=== PATIENT | female | born 1960 | race Caucasian/White ===

== ENCOUNTER → 2019-05-16 | Outpatient (CLI) | payer OTHER | LOC: MC.RAD 10:50 | DX: Z12.31 Encounter for screening mammogram for malignant neoplasm of breast (principal) ==

== ENCOUNTER → 2019-09-21 | Outpatient (CLI) | payer MEDICAID | LOC: COL.RAD 12:34 | DX: Z01.818 Encounter for other preprocedural examination (principal); R53.82 Chronic fatigue, unspecified; Z87.891 Personal history of nicotine dependence ==

== ENCOUNTER → 2019-09-21 | Outpatient (CLI) | payer MEDICAID ==
[2019-09-21 16:30] LABS: HEMATOCRIT 42.1 % (37.0-47.0); HEMOGLOBIN 13.8 g/dl (12.5-16.0); MEAN CELL VOLUME 93 fl (80.0-100.0); MEAN CORPUSCULAR HEMOGLOBIN 30 pg (27.0-31.0); MEAN CORPUSCULAR HGB CONC 33 g/dl (33.0-37.0); MEAN PLATELET VOLUME 10.3 fl (7.4-10.4); PLATELET COUNT 265 K/mm3 (130-400); RED BLOOD COUNT 4.54 M/mm3 (4.10-5.30); REDCELL DISTRIBUTION WIDTH-CV 13.1 % (11.5-14.5)
[2019-09-21 16:45] LABS: PH 7 (5-8); SQUAMOUS EPITHELIAL 0-2 /hpf; URINE APPEARANCE Clear; URINE BACTERIA None Seen /hpf; URINE BILIRUBIN Negative (NEGATIVE); URINE BLOOD 1+ (NEGATIVE); URINE COLOR Yellow; URINE GLUCOSE Negative (NEGATIVE); URINE KETONE Negative (NEGATIVE); URINE LEUKOCYTE ESTERASE Negative (NEGATIVE); URINE NITRATE Negative (NEGATIVE); URINE PROTEIN(semi-quant) Negative (NEGATIVE); URINE RBC 0-2 /hpf; URINE UROBILINOGEN Negative (NEGATIVE); URINE WBC 0-2 /hpf
[2019-09-21 21:26] LABS: COLLECTION METHOD CLEAN CATCH
== END ==
LOC: COL.LAB 15:56
PROVIDERS: Obstetrics & Gynecology
DX: F31.9 Bipolar disorder, unspecified (principal)

== ENCOUNTER 2020-04-03 07:44 | Emergency (ER) | payer MEDICAID ==
[~2020-04-03] VITALS: Ht 165.1 cm; Wt 82.7 kg
[~2020-04-03 07:44] MED LIST: ABILIFY5 MG PO; ARTANE 2MG2 MG PO; BUSPAR10 MG PO; CALCIUM 600-D 61 TAB PO; CELEXA40 MG PO; CLARITIN 1010 MG/TAB PO; DESYREL 100MG100 MG PO; INDERAL 20MG20 MG PO; LAMICTAL 100MG100 MG PO; MASON NATURAL1200 MG PO; PRAVACHOL 40MG40 MG PO; SYNTHROID0.2 MG/TAB PO; ZYPREXA 5MG5 MG PO
[2020-04-03 07:45] VITALS: TEMP 98.8
[2020-04-03] MEDS ORDERED: LITHIUM 30300 MG/CAP PO (08:11)
[2020-04-03 08:35] LABS: BASO % 0.7 % (0.0-2.0); EOS # 0.2 (0.0-0.7); EOS % 2.8 % (0-4.0); GRAN # 3.6 (1.4-6.5); GRAN % 67.1 % (42.2-75.2); HEMATOCRIT 41.9 % (37.0-47.0); HEMOGLOBIN 13.3 g/dl (12.5-16.0); LYMPH # 1.1 (1.2-3.4); LYMPH % 20.4 % (20.0-51.0); MEAN CELL VOLUME 93 fl (80.0-100.0); MEAN CORPUSCULAR HEMOGLOBIN 30 pg (27.0-31.0); MEAN CORPUSCULAR HGB CONC 32 g/dl (33.0-37.0); MEAN PLATELET VOLUME 10.3 fl (7.4-10.4); MONO # 0.4 (0.1-0.6); MONO % 7.9 % (1.7-9.3); PLATELET COUNT 198 K/mm3 (130-400); REDCELL DISTRIBUTION WIDTH-CV 14.2 % (11.5-14.5)
[2020-04-03 10:35] LABS: ALBUMIN 4.6 gm/dL (3.5-5.0); BILIRUBIN,TOTAL 0.5 mg/dL (0.0-1.0); CALCIUM 10.6 mg/dL (8.4-10.2); CREATININE, serum 0.73 (0.52-1.25); POTASSIUM 4.4 mmol/L (3.4-5.0); TOTAL PROTEIN 7.9 gm/dL (6.4-8.2)
[2020-04-03 11:30] VITALS: BP 142/79; PULSE 64
== END 2020-04-03 11:30 | disposition home or self-care (01) ==
LOC: COL.ER 07:44
PROVIDERS: Emergency Medicine
DX: S09.90XA Unspecified injury of head, initial encounter (principal); S16.1XXA Strain of muscle, fascia and tendon at neck level, initial encounter; R26.89 Other abnormalities of gait and mobility; G20 Parkinson's disease; F31.9 Bipolar disorder, unspecified; W18.09XA Striking against other object with subsequent fall, initial encounter; Y92.091 Bathroom in other non-institutional residence as the place of occurrence of the external cause
CPT/HCPCS: J1885; J7040

== ENCOUNTER 2020-04-11 15:23 | Observation (INO) | payer MEDICAID ==
[~2020-04-11] VITALS: Ht 162.6 cm; Wt 84.1 kg
[~2020-04-11 15:23] MED LIST changes: +LITHIUM 30300 MG/CAP PO
[2020-04-11 16:21] LABS: BASO # 0.1 (0.0-0.2); BASO % 0.8 % (0.0-2.0); EOS # 0.2 (0.0-0.7); EOS % 3.5 % (0-4.0); GRAN # 3.6 (1.4-6.5); GRAN % 56.4 % (42.2-75.2); HEMATOCRIT 43.9 % (37.0-47.0); HEMOGLOBIN 14.2 g/dl (12.5-16.0); LYMPH # 1.9 (1.2-3.4); LYMPH % 29.3 % (20.0-51.0); MEAN CELL VOLUME 92 fl (80.0-100.0); MEAN CORPUSCULAR HEMOGLOBIN 30 pg (27.0-31.0); MEAN CORPUSCULAR HGB CONC 32 g/dl (33.0-37.0); MEAN PLATELET VOLUME 10.2 fl (7.4-10.4); MONO # 0.6 (0.1-0.6); MONO % 9.5 % (1.7-9.3); PLATELET COUNT 236 K/mm3 (130-400); RED BLOOD COUNT 4.76 M/mm3 (4.10-5.30)
[2020-04-11 16:54] LABS: ALANINE AMINOTRANSFERASE 23 U/L (4-34); ALBUMIN 4.7 gm/dL (3.5-5.0); ALKALINE PHOSPHATASE 112 U/L (50-136); ANION GAP 7 mmol/L (7-16); AST,SGOT 23 U/L (15-37); BILIRUBIN,TOTAL 0.5 mg/dL (0.0-1.0); BLOOD UREA NITROGEN 11 mg/dL (7-17); CALCIUM 10.4 mg/dL (8.4-10.2); CARBON DIOXIDE 28 mmol/L (22-30); CHLORIDE 104 mmol/L (98-107); GLUCOSE 91 mg/dL (74-106); POTASSIUM 4.1 mmol/L (3.4-5.0); SODIUM 140 mmol/L (137-145); TOTAL PROTEIN 7.7 gm/dL (6.4-8.2)
[2020-04-11 17:05] LABS: COLLECTION METHOD CLEAN CATCH
[2020-04-11 17:10] LABS: TROPONIN-I < 0.012 ng/mL (0.000-0.035)
[2020-04-11 17:11] LABS: C-REACTIVE PROTEIN < 0.5 mg/dL (0.0-0.9)
[2020-04-11 17:15] LABS: PH 7 (5-8); SQUAMOUS EPITHELIAL None Seen /hpf; URINE APPEARANCE Clear; URINE BACTERIA Rare /hpf; URINE BILIRUBIN Negative (NEGATIVE); URINE BLOOD Negative (NEGATIVE); URINE COLOR Straw; URINE GLUCOSE Negative (NEGATIVE); URINE KETONE Negative (NEGATIVE); URINE LEUKOCYTE ESTERASE Negative (NEGATIVE); URINE NITRATE Negative (NEGATIVE); URINE PROTEIN(semi-quant) Negative (NEGATIVE); URINE RBC 0-2 /hpf; URINE UROBILINOGEN Negative (NEGATIVE)
[2020-04-11 19:25] VITALS: BP 134/62; PULSE 61; TEMP 97.9
--- NOTE | 2020-04-11 23:36 | NUR ---
Pt admission procedure completed and charted, alert, oriented, roomair. Heart and lung sound clear, no edema, no wound over body. No N/V/D, tingling, numbness, SOA as per pt. Pt stated her pain level has gone down after getting pain meds at ER. Helped her settled on bed, call light on reach, no further needs at this time.
[2020-04-12] VITALS (7 sets, daily range): BP systolic 122–142; BP diastolic 53–67; PULSE 47–71; TEMP 97.4–98.8
--- NOTE | 2020-04-12 07:35 | NUR ---
Pt slept through out the night. Morning meds provided as per OCT, tolerated well. Handover provided to the day nurse.
--- NOTE | 2020-04-12 07:45 | NUR ---
Patient sitting up in bed watching TV. A&O,but intermittently confused and impulsive. VSS. IV CDI. Denies pain and discomfort. Fall precautions in place. No further needs expressed from the patient. Call light within reach. Bed alarm on
--- NOTE | 2020-04-12 13:01 | NUR ---
Plan: To return home with Home health through [facility] and with mother and daughter support. Assessment: SW met with patient about plan. Patient reports that her mother is her caregiver who is 88 years old Shiloh Jerome . Patient reports that she her DTR Josie Garcia . Patient reports that she has trouble with failing 1-2 times a day. Patient reports that she is interested in home health supports. Derekn reports that she thinks she needs a wheelchair due to her unsteady gait. PT worked with client. Wheelchair is not recommended. SW educated patient on PT findings. Patient reports that her PCP is Dr. Kandi GARCIA and [facility] Patient uses a walker 28/02 to assist in mobility. SW spoke with patients mother about her care. Mother shares that she is unable to continue to take care of her and wants to adovate that she wants to be home but needs support. SW educated patients' mother on setting up home healthcare. SW educated on independent or assisted living facilities. Patients is concerned on how the client will get home, mother is unable to drive. DTR is a teacher and can not support during the day. Educated on a taxi Voucher. Mother reports the patient is scheduled for and MRI on Tuesday and wanted it done before she leaves. Educated on the services being separate, with Dr. Oswald. Action: SW will send fax to [facility] for home health care. Educated patient on support for PT. Will continue support DC plan.
--- NOTE | 2020-04-12 18:08 | NUR ---
Patient has been impulsive throughout the shift, getting up and on the edge of bed before calling for assistance to the bathroom. Nursing staff has been instructing patient to use the call button for assistance. Patient has had one loose BM and several smaller BM's. Patient is A&O, but forgetful at times. VSS. IV CDI. Fall precautions in place. Call light within reach. Bed alarm on
--- NOTE | 2020-04-12 22:45 | NUR ---
Pt assessment completed and charted, alert, oriented, roomair. Meds provided as per OCT, tolerated well. Helped her settled on bed, call light on reach. No further needs at this time.
[2020-04-13 04:34] VITALS: BP 152/72; PULSE 61; TEMP 97.9
[2020-04-13 07:26] LABS: BASO % 0.6 % (0.0-2.0); EOS # 0.3 (0.0-0.7); GRAN % 57.7 % (42.2-75.2); HEMATOCRIT 40.3 % (37.0-47.0); HEMOGLOBIN 12.9 g/dl (12.5-16.0); LYMPH # 1.5 (1.2-3.4); LYMPH % 28.5 % (20.0-51.0); MEAN CELL VOLUME 94 fl (80.0-100.0); MEAN CORPUSCULAR HEMOGLOBIN 30 pg (27.0-31.0); MEAN CORPUSCULAR HGB CONC 32 g/dl (33.0-37.0); MONO # 0.4 (0.1-0.6); MONO % 7.8 % (1.7-9.3); PLATELET COUNT 245 K/mm3 (130-400); RED BLOOD COUNT 4.28 M/mm3 (4.10-5.30); REDCELL DISTRIBUTION WIDTH-CV 14.3 % (11.5-14.5)
[2020-04-13 07:31] VITALS: BP 130/65; PULSE 52; TEMP 98
[2020-04-13 07:39] LABS: CREATININE, serum 0.78 (0.52-1.25); POTASSIUM 4.2 mmol/L (3.4-5.0)
--- NOTE | 2020-04-13 07:43 | NUR ---
Pt had an uneventful night, slept through out the night. Morning meds provided as per OCT, tolerated well. Handover provided to the day nurse.
--- NOTE | 2020-04-13 08:15 | NUR ---
Patient sitting up in bed watching TV. A&Ox3. VSS. IV CDI. Denies pain and disocomfort. No further needs expressed from the patient. Call light within reach. Bed alarm on
--- NOTE | 2020-04-13 10:18 | NUR ---
Pt was in bed comfortable. Lungs sounded diminished on the left side. IV site was CDI. Pt denied any pain. Call light within reach.
[2020-04-13 11:45] VITALS: BP 139/69; PULSE 65; TEMP 98.5
[2020-04-13 15:12] VITALS: BP 141/61; PULSE 66; TEMP 98.5
--- NOTE | 2020-04-13 15:14 | NUR ---
Hospitalist approached SW about sending patient to [facility]. No additional information was given. JOSSUE spoke with patient who indicated that she wished to go to [facility]. JOSSUE contacted [facility] and spoke with Liz who indicated that they did offer LTC. JOSSUE faxed a referral to [facility], and contacted the patients nurse to inform her that a referral had been sent.
--- NOTE | 2020-04-13 17:39 | NUR ---
Patient had an uneventful day. Was not as impulsive to get out of bed. Did call more for help with assistance with ambulation. Denies pain and discomfort. No IV access, IV was coming out. Doctor notified and okay with no IV access. Patient A&Ox3. VSS. No further needs expressed from the patient. Call light within reach. Bed alarm on
[2020-04-13 19:05] VITALS: BP 149/71; PULSE 57; TEMP 98.4
--- NOTE | 2020-04-13 22:16 | NUR ---
Pt assessment completed, charted, alert, oriented, roomair, independent. Meds provided as per OCT, along with ibuprofen for headache on pt request. Pt is settled on her bed, call light on her reach, bed alarm on, VSS. No further needs at this time.
[2020-04-14 00:06] VITALS: BP 150/60; PULSE 59; TEMP 97.9
[2020-04-14 03:19] VITALS: BP 149/53; PULSE 51; TEMP 98
--- NOTE | 2020-04-14 05:02 | NUR ---
Pt had an uneventful night, slept through out the night. Call light within reach. No further needs at this time.
[2020-04-14 08:00] VITALS: BP 156/53; PULSE 64; TEMP 97.2
--- NOTE | 2020-04-14 08:06 | NUR ---
Assessment completed, alert/oriented, vital signs stable, denies any pain or discomfort, she stated she "slept amazing overnight", no tremors observed this morning, patient has been up with stand by assist and doing well ambulating, she is sitting up eating breakfast, morning meds given and patient denies other needs at this time, she is hoping to be discharged today
[2020-04-14] MEDS ORDERED: ARTANE 2MG2 MG PO (10:46)
[2020-04-14 11:20] VITALS: BP 120/60; PULSE 62; TEMP 98.6
--- NOTE | 2020-04-14 14:10 | NUR ---
Discharge orders discussed with the patient, instructed to follow up with PCP/PMH/Neuro as directed, discussed labs and medication chands as well as new meds, script sent to [facility] for her, she is leaving with her daughter and I escorted her out by wheelchair
--- NOTE | 2020-04-15 11:44 | NUR ---
wafer polishing lead worker contacted patient's mother, Petrona Jerome [phone] to discuss options for patient's care. Worker provided information on [facility] as only provider that accepts [facility] (for nursing only). Worker also provided information on [facility] assisted living. Petrona will reach out to assisted living facilities and see if patient is eligible with her income and care needs. Petrona and patient prefer care in the home. Worker gave a referral to [facility] for possible admission to care. [facility] only accepts nursing visits with no therapy supports.
== END 2020-04-14 14:12 | disposition home or self-care (01) ==
LOC: COL.ER 15:23 → MEDICAL 17:24
PROVIDERS: Emergency Medicine; ADMIT Internal Medicine Pulmonary Disease
DX: M75.01 Adhesive capsulitis of right shoulder (principal); R29.6 Repeated falls; E78.5 Hyperlipidemia, unspecified; E03.9 Hypothyroidism, unspecified; G20 Parkinson's disease; E83.52 Hypercalcemia; R44.0 Auditory hallucinations; Z88.0 Allergy status to penicillin; Z87.891 Personal history of nicotine dependence
CPT/HCPCS: G0378; J1650; J7030

== ENCOUNTER → 2020-04-30 | Outpatient (CLI) | payer MEDICAID | LOC: COL.RAD 04-16 10:30 | DX: G20 Parkinson's disease (principal); Z86.59 Personal history of other mental and behavioral disorders ==

== ENCOUNTER → 2020-10-14 | Outpatient (CLI) | payer MEDICAID ==
[~2020-10-14] MED LIST changes: +ALBUTEROL0.83 MG/ML IH; +ARICEPT10 MG PO; +B-121000 MCG PO; +BENTYL 10MG10 MG/CAP PO; +BIOTIN5000 MCG PO; +CALCIUM CARBON650 M2 PO; +EPA FISH OIL1 SGL PO; +INCRUSE EL62.5 MCG/A IH; +NORVASC 5MG5 MG/TAB PO; +PROAIR HFA0.09 MG/AC IH; +PROTONIX 40MG T40 MG PO; +ROBAXIN 50500 MG/TAB PO; +SINEMET 25/101 UDTAB PO; +VITAMIND3 5000 PO
== END ==
LOC: COL.RAD 11:50
DX: M47.816 Spondylosis without myelopathy or radiculopathy, lumbar region (principal); M47.818 Spondylosis without myelopathy or radiculopathy, sacral and sacrococcygeal region; M51.36 Other intervertebral disc degeneration, lumbar region; R15.9 Full incontinence of feces

== ENCOUNTER 2020-11-14 09:53 | Day surgery (SDC) | payer MEDICAID ==
[~2020-11-14] VITALS: Ht 162.6 cm; Wt 94.1 kg
[~2020-11-14 09:53] MED LIST changes: -ALBUTEROL0.83 MG/ML IH; -ARICEPT10 MG PO; -B-121000 MCG PO; -BENTYL 10MG10 MG/CAP PO; -BIOTIN5000 MCG PO; -CALCIUM CARBON650 M2 PO; -EPA FISH OIL1 SGL PO; -INCRUSE EL62.5 MCG/A IH; -NORVASC 5MG5 MG/TAB PO; -PROAIR HFA0.09 MG/AC IH; -PROTONIX 40MG T40 MG PO; -ROBAXIN 50500 MG/TAB PO; -SINEMET 25/101 UDTAB PO; -VITAMIND3 5000 PO
[2020-11-14] MEDS ORDERED: PROAIR HFA0.09 MG/AC IH (11:31)
[2020-11-14] MEDS ORDERED: INCRUSE EL62.5 MCG/A IH (11:32)
[2020-11-14] MEDS ORDERED: ROBAXIN 50500 MG/TAB PO (11:33)
[2020-11-14] MEDS ORDERED: PROTONIX 40MG T40 MG PO (11:33)
[2020-11-14] MEDS ORDERED: SINEMET 25/101 UDTAB PO (11:35)
[2020-11-14] MEDS ORDERED: B-121000 MCG PO (12:10)
[2020-11-14] MEDS ORDERED: BIOTIN5000 MCG PO (12:11)
[2020-11-14] MEDS ORDERED: VITAMIND3 5000 PO (12:11)
[2020-11-14] MEDS ORDERED: EPA FISH OIL1 SGL PO (12:11)
[2020-11-14] MEDS ORDERED: ALBUTEROL0.83 MG/ML IH (12:14)
[2020-11-14] MEDS ORDERED: CALCIUM CARBON650 M2 PO (12:15)
[2020-11-14] MEDS ORDERED: ARICEPT10 MG PO (12:16)
[2020-11-14] MEDS ORDERED: NORVASC 5MG5 MG/TAB PO (12:22)
[2020-11-14] MEDS ORDERED: BENTYL 10MG10 MG/CAP PO (12:24)
[2020-11-14 12:33] VITALS: BP 133/76; PULSE 60; TEMP 96.8
[2020-11-14 13:10] VITALS: BP 106/67; PULSE 54; TEMP 96.9
--- NOTE | 2020-11-14 13:10 | NUR ---
PT RETURNS TO ENDO SUITE BAY [address] VIA CART ACCOMPANIED BY Jocelyne RAY RN. PT ALERT AND ORIENTED. IVF INFUSING TO IV IN RH STARTED BY CAR DELIVERER DURING PROCEDURE. PT DENIES PAIN OR NAUSEA. VITALS STABLE. WARM BLANKETS PROVIDED. PT DENIES NEEDS OR COMPLAINTS. COFFEE AND TOAST PROVIDED. PT RESTING IN CART, CALL LIGHT IN REACH.
[2020-11-14 13:30] VITALS: BP 144/77; PULSE 65
--- NOTE | 2020-11-14 13:30 | NUR ---
PT ATE TOAST AND DRANK COFFEE WITH NO DIFFICULTY. DR. VAILA IN TO DISCUSS PROCEDURES WITH PT AND MOTHER ON TELEPHONE. PT DENIES NEEDS AT THIS TIME. CALL LIGHT IN REACH.
[2020-11-14 13:45] VITALS: BP 132/85; PULSE 58
--- NOTE | 2020-11-14 13:45 | NUR ---
PT RESTING IN CHAIR. VITALS WNL. IV DISCONTINUED. PT CHANGED TO PERSONAL CLOTHING. DISCHARGE INSTRUCTIONS PROVIDED. PT VERBALIZES UNDERSTANDING AND DENIES FURTHER QUESTIONS OR COMPLAINTS. CALL PLACED TO [facility]. STAFF STATES [facility] WILL BE AT THE HOSPITAL SHORTLY.
--- NOTE | 2020-11-14 14:05 | NUR ---
PT DISCHARGED VIA WHEEL CHAIR TO WAITING ROOM IN DOWNSTAIRS PT ENTRANCE LOBBY. PT WAITING FOR TRANSPORTATION [facility] TO ARRIVE. PT BELONGINGS, WALKER, AND DISCHARGE PACKET SENT WITH PT. PT DENIES FURTHER NEEDS AT THIS TIME. PT WILL HAVE ACCOUNT PLANNER CALL [facility] IF [facility] DOES NOT ARRIVE SOON.
== END 2020-11-14 14:05 | disposition home or self-care (01) ==
LOC: SDCO 09:53
DX: Z12.11 Encounter for screening for malignant neoplasm of colon (principal); K63.5 Polyp of colon; K21.9 Gastro-esophageal reflux disease without esophagitis; K29.70 Gastritis, unspecified, without bleeding; K44.9 Diaphragmatic hernia without obstruction or gangrene; K31.84 Gastroparesis; G20 Parkinson's disease; I10 Essential (primary) hypertension; J44.9 Chronic obstructive pulmonary disease, unspecified; Z90.710 Acquired absence of both cervix and uterus
CPT/HCPCS: J2704; J7120

== ENCOUNTER → 2021-01-14 | Outpatient (CLI) | payer MEDICAID ==
[~2021-01-14] MED LIST changes: +ALBUTEROL0.83 MG/ML IH; +ARICEPT10 MG PO; +B-121000 MCG PO; +BENTYL 10MG10 MG/CAP PO; +BIOTIN5000 MCG PO; +CALCIUM CARBON650 M2 PO; +EPA FISH OIL1 SGL PO; +INCRUSE EL62.5 MCG/A IH; +NORVASC 5MG5 MG/TAB PO; +PROAIR HFA0.09 MG/AC IH; +PROTONIX 40MG T40 MG PO; +ROBAXIN 50500 MG/TAB PO; +SINEMET 25/101 UDTAB PO; +VITAMIND3 5000 PO
== END ==
LOC: MHCPAIN 09:37
DX: M47.817 Spondylosis without myelopathy or radiculopathy, lumbosacral region (principal); M54.5 Low back pain; M53.3 Sacrococcygeal disorders, not elsewhere classified
CPT/HCPCS: G0463

== ENCOUNTER → 2021-01-20 | Outpatient (CLI) | payer MEDICAID | LOC: COL.RAD 13:29 | DX: Z12.2 Encounter for screening for malignant neoplasm of respiratory organs (principal); Z87.891 Personal history of nicotine dependence ==

== ENCOUNTER → 2021-01-22 | Outpatient (CLI) | payer MEDICAID | LOC: MHCPAIN 08:13 | DX: M47.817 Spondylosis without myelopathy or radiculopathy, lumbosacral region (principal); M54.5 Low back pain; M53.3 Sacrococcygeal disorders, not elsewhere classified ==

== ENCOUNTER → 2021-01-28 | Outpatient (CLI) | payer MEDICAID | LOC: MHCPAIN 10:48 | DX: M47.817 Spondylosis without myelopathy or radiculopathy, lumbosacral region (principal); M54.5 Low back pain; M53.3 Sacrococcygeal disorders, not elsewhere classified; G20 Parkinson's disease | CPT/HCPCS: G0463 ==

== ENCOUNTER → 2021-02-05 | Outpatient (CLI) | payer MEDICAID | LOC: MHCPAIN 09:34 | DX: M47.817 Spondylosis without myelopathy or radiculopathy, lumbosacral region (principal); M54.5 Low back pain; M53.3 Sacrococcygeal disorders, not elsewhere classified ==

== ENCOUNTER → 2021-03-19 | Outpatient (CLI) | payer MEDICAID | LOC: MHCPAIN 08:47 | DX: M47.817 Spondylosis without myelopathy or radiculopathy, lumbosacral region (principal); M54.5 Low back pain; M53.3 Sacrococcygeal disorders, not elsewhere classified | CPT/HCPCS: G0463; J1100; J2250; J3010 ==

== ENCOUNTER → 2021-05-18 | Outpatient (CLI) | payer MEDICAID | LOC: MHCPAIN 09:35 | DX: M47.817 Spondylosis without myelopathy or radiculopathy, lumbosacral region (principal); M54.50 Low back pain, unspecified; M53.3 Sacrococcygeal disorders, not elsewhere classified | CPT/HCPCS: G0463 ==

== ENCOUNTER → 2021-08-31 | Outpatient (CLI) | payer MEDICAID | LOC: MHCPAIN 12:39 | DX: M54.6 Pain in thoracic spine (principal); M79.18 Myalgia, other site; G89.29 Other chronic pain | CPT/HCPCS: G0463 ==

== ENCOUNTER → 2021-09-16 | Outpatient (CLI) | payer MEDICAID | LOC: MHCPAIN 11:29 | DX: M79.18 Myalgia, other site (principal); M54.6 Pain in thoracic spine | CPT/HCPCS: J1040 ==

== ENCOUNTER → 2022-02-02 | Outpatient (CLI) | payer MEDICAID | LOC: MHCPAIN 10:47 | DX: M47.896 Other spondylosis, lumbar region (principal); M79.18 Myalgia, other site; G20 Parkinson's disease | CPT/HCPCS: G0463 ==

== ENCOUNTER → 2022-03-08 | Outpatient (CLI) | payer MEDICAID | LOC: MHCPAIN 11:47 | DX: M47.817 Spondylosis without myelopathy or radiculopathy, lumbosacral region (principal); M53.3 Sacrococcygeal disorders, not elsewhere classified; M54.50 Low back pain, unspecified | CPT/HCPCS: G0463; J1100; J2250; J3010 ==

== ENCOUNTER → 2022-06-16 | Outpatient (CLI) | payer MEDICAID | LOC: MHCPAIN 09:19 | DX: M79.18 Myalgia, other site (principal); M54.15 Radiculopathy, thoracolumbar region | CPT/HCPCS: J1040 ==

== ENCOUNTER → 2022-09-21 | Outpatient (CLI) | payer MEDICAID | LOC: MHCPAIN 12:40 | DX: M47.896 Other spondylosis, lumbar region (principal); M79.18 Myalgia, other site; G20 Parkinson's disease | CPT/HCPCS: G0463 ==

== ENCOUNTER → 2022-10-21 | Outpatient (CLI) | payer MEDICAID | LOC: MHCPAIN 12:08 | DX: M47.817 Spondylosis without myelopathy or radiculopathy, lumbosacral region (principal); M54.50 Low back pain, unspecified | CPT/HCPCS: J1100; J2250; J3010 ==

== ENCOUNTER → 2022-12-14 | Outpatient (CLI) | payer MEDICAID | LOC: MHCPAIN 12:16 | DX: M79.18 Myalgia, other site (principal); M54.6 Pain in thoracic spine; M54.50 Low back pain, unspecified; G20 Parkinson's disease | CPT/HCPCS: G0463 ==